=== PATIENT | male | born 2000 | race Caucasian/White ===

== ENCOUNTER → 2020-05-26 | Outpatient (CLI) | payer BC | LOC: ZCOL.LAB 18:20 | DX: Z20.828 Contact with and (suspected) exposure to other viral communicable diseases (principal) ==

== ENCOUNTER → 2020-07-04 | Outpatient (CLI) | payer BC | LOC: ZCOL.LAB 16:09 | DX: Z59.8 Other problems related to housing and economic circumstances (principal); Z20.828 Contact with and (suspected) exposure to other viral communicable diseases ==